=== PATIENT | male | born 1965 | race Caucasian/White ===

== ENCOUNTER 2020-12-28 16:55 | Emergency (ER) | payer OTHER, SELFPAY ==
--- NOTE | ~2020-12-28 | XR_ITS ---
EXAMINATION: XR hand RT min 3V INDICATION: Right hand pain TECHNIQUE: Three views of the right hand are obtained. COMPARISON: None available FINDINGS: No fracture is identified. Bone alignment is normal. There is moderate osteoarthritis at th e triscaphe and first carpometacarpal joints. The soft tissues are unremarkable. IMPRESSION: 1. Osteoarthritis without acute osseous abnormality. Reviewed, dictated and finalized at location A.
[2020-12-28 17:11] VITALS: BP 156/71; PULSE 72; RESP 20; TEMP 36.6; O2SAT 95
--- NOTE | 2020-12-28 17:13 | ED.UPPEXIN ---
HPI - Extremity Injury (Upper) General Chief Complaint: Extremity Problem,Nontraumatic Stated Complaint: right wrist and thumb area knot Time Seen by Provider: 12/28/20 17:13 Source: patient and RN notes reviewed History of Present Illness HPI narrative: Patient is a 55-year-old male who presents the urgent care with complaints of right thumb pain radiating to the right wrist. Patient states that he noticed the pain approximately 3 months or more and has been using Aleve while working. 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 Patient denies of any known history of arthritis. Patient states that he is left-hand dominant. Also reports of noticing a lump to the right thumb in the last few weeks. No other acute complaints. No known injury. No acute distress noted. Patient aware of the plan of care. Some parts of this dictation were generated by voice recognition software and may contain typographical and/or grammatical inaccuracies. Related Data Home Medications Medication Instructions Recorded Confirmed No Home Medications 12/28/20 12/28/20 Allergies Allergy/AdvReac Type Severity Reaction Status Date / Time No Known Allergies Allergy Unknown Verified 12/28/20 17:14 Review of Systems Review of Systems: Narrative: CONSTITUTIONAL: Denies fever, chills, or sweats. EYES: Denies visual changes, redness, or discharge. ENT: Denies rhinorrhea, congestion, sore throat, or otalgia. CARDIOVASCULAR: Denies chest pain, palpitations, or edema. RESPIRATORY: Denies cough or dyspnea. GASTROINTESTINAL: Denies abdominal pain, nausea, vomiting, or diarrhea. GENITOURINARY: Denies dysuria or hematuria. SKIN: Denies rash or itching. MUSCULOSKELETAL: Reports of right thumb pain with a lump shooting to the right wrist NEUROLOGIC: Denies headache, numbness, or weakness. All other systems reviewed are negative, except as documented in HPI. PMFSH Comments At the time of my signature, I reviewed and agree with the nursing past medical, surgical, social, and family history. There is no relevant family history pertinent to the patient complaint. Exam Narrative: Exam Narrative: GENERAL: This is a well-nourished, well-developed patient, in no apparent distress. HEAD: normocephalic, atraumatic. EYES: PERRL. Sclera clear/white. Vision is grossly intact. EARS: External ears normal NOSE: External nose normal with no obvious nasal discharge, nares without redness, no rhinorrhea. THROAT: Mucous membranes moist NECK: Neck supple SKIN: warm, intact with no suspicious lesions or rash, good texture and turgor. NEURO: awake, alert, and oriented to person, place and time. There were no obvious focal neurologic abnormalities. EXTREMITIES: No obvious edema, ecchymosis or deformity noted to the right upper extremity. Range of motion within normal limits. Positive strong right radial pulse with capillary refill less than 2 seconds. Range of motion to right thumb slightly limited due to pain. And non-mobile firm possible ganglion cyst or arthritis noted to the MCP of the right thumb Course Vital Signs Vital signs: Vital Signs Temperature 97.8 F 12/28/20 17:11 Pulse Rate 72 12/28/20 17:11 Respiratory Rate 20 12/28/20 17:11 Blood Pressure 156/71 H 12/28/20 17:11 Pulse Oximetry 95 12/28/20 17:11 Temperature 97.8 F 12/28/20 17:11 Pulse Rate 72 12/28/20 17:11 Respiratory Rate 20 12/28/20 17:11 Blood Pressure 156/71 H 12/28/20 17:11 Pulse Oximetry 95 12/28/20 17:11 Reviewed-patient is informed that they may have pre-hypertension or hypertension based on a blood pressure reading in the department. I recommend the patient call the primary care provider listed on their discharge instructions or a physician of their choice this week to arrange follow-up for further evaluation of possible pre-hypertension or hypertension. MDM - Extremity Injury (Upper) MDM Narrative Medical decision making narrat
== END 2020-12-28 18:25 | disposition home or self-care (01) ==
PROVIDERS: Emergency Provider Nurse Practitioner Family
DX: M19.041 Primary osteoarthritis, right hand (principal)
CPT/HCPCS: 73130; 99213; G0463

== ENCOUNTER 2021-07-25 18:09 | Emergency (ER) | payer OTHER, SELFPAY ==
[2021-07-25 18:16] VITALS: BP 143/68; PULSE 77; RESP 20; TEMP 37.1; O2SAT 98
--- NOTE | 2021-07-25 18:19 | ED.URI ---
HPI - URI/Sore Throat General Chief Complaint: Upper Respiratory Infection Stated Complaint: sore neck/throat Time Seen by Provider: 07/25/21 18:23 Source: patient Mode of arrival: ambulatory Limitations: no limitations History of Present Illness HPI Narrative: Cleve is a 56 year old male patient who ambulated into [facility] with neck and throat pain since . Patient states the left side of his neck starting hurting on , then nasal congestion, swollen glands, sinus drainage, and cough. Patient has not taken OTC medication for colds, he has taken Aleve for pain. Patient is a 40 year smoker. MD elicited complaint: sore throat Related Data Allergies Allergy/AdvReac Type Severity Reaction Status Date / Time No Known Allergies Allergy Unknown Verified 07/25/21 18:31 Review of Systems Review of Systems: CONSTITUTIONAL: Denies body aches, fever, chills, or sweats. EYES: Denies visual changes, redness, or discharge. ENT: + rhinorrhea, + congestion, + sore throat, left otalgia. CARDIOVASCULAR: Denies chest pain, palpitations, or edema. RESPIRATORY: + cough denies dyspnea. GASTROINTESTINAL: Denies abdominal pain, nausea, vomiting, or diarrhea. GENITOURINARY: Denies dysuria or hematuria. SKIN: Denies rash, itching, or wounds. MUSCULOSKELETAL: Denies back pain, joint pain, or myalgia. NEUROLOGIC: Denies headache, numbness, tingling, or weakness. PSYCH: Denies depression or anxiety. PMFSH Comments At time of signature, I have reviewed and agree with nursing past medical, surgical, social and family history unless otherwise noted. Please see nursing chart for further information. There is no relevant family history pertinent to the presenting complaint Exam Narrative: GENERAL: Well-appearing, well-nourished, and in no acute distress. HEAD: Normocephalic, atraumatic. EYES: EOMI. No redness or drainage. Conjunctivae normal. ENT: Mucous membranes pink and moist. nasal membranes pale with yellow drainage. Left tympanic membrane is bulging with moderate fluid no erythema. Right tympanic membrane with mild bulging no erythema minimal fluid . Posterior pharynx is erythemic with moderate edema no exudate and moderate amount of postnasal drainage noted. Uvula midline. NECK: Normal AROM. Supple. left anterior cervical lymphadenopathy. CHEST: No respiratory distress. Wheezing throughout lung johnson bilaterally MUSCULOSKELETAL: No bony tenderness. EXTREMITIES: Normal range of motion. No edema. SKIN: Warm, dry, no rash. Capillary refill normal. Normal skin turgor. NEURO: No focal deficits. Alert and oriented x3. Gait steady. PSYCH: Normal affect. No signs of depression or anxiety. Course Vital Signs Vital signs: Reviewed MDM - URI/Sore Throat MDM Narrative Medical decision making narrative: Rapid strep is negative. Strep culture will be sent to lab. Symptoms started 4 days ago. Patient will be treated with prednisone. Follow-up with his primary care doctor in 3 to 5 days for continued symptoms Patient is scheduled to take Amoxicillin for a dental procedure starting 07/29/21. Differential Diagnosis Differential diagnosis: Likely upper respiratory infection, viral infection and pharyngitis Medical Records Attestation: I reviewed the patient's medical records. Lab Data Attestation: I reviewed the patient's lab results. Critical Care Time Critical Care Time Critical Care Time: No Discharge Plan Discharge Clinical Impression: Upper respiratory infection Qualifiers: URI type: unspecified viral URI Qualified Code(s): J06.9 - Acute upper respiratory infection, unspecified Patient Disposition: Home, Self-Care Condition: Stable Instructions: Antibiotic Form, Upper Respiratory Infection (DC) Additional Instructions: Increase fluids, OTC Chloraseptic lozenges for sore throat pain. Your rapid strep swab was negative today at [facility]. You will be notified in a few days if the culture comes back pos
== END 2021-07-25 18:50 | disposition home or self-care (01) ==
PROVIDERS: Emergency Provider Nurse Practitioner Family
DX: J06.9 Acute upper respiratory infection, unspecified (principal); F17.200 Nicotine dependence, unspecified, uncomplicated; Z96.60 Presence of unspecified orthopedic joint implant
CPT/HCPCS: 87081; 87147; 87880; 99213; G0463

== ENCOUNTER 2021-08-10 13:47 | Emergency (ER) | payer OTHER, SELFPAY ==
--- NOTE | ~2021-08-10 | XR_ITS ---
EXAMINATION: XR chest 2V EXAM DATE: 08/10/2021 14:30 INDICATION: Chest pressure. TECHNIQUE: Frontal and lateral projections of the chest obtained and reviewed. There is no prior katlyn dy for comparison. FINDINGS: Punctate left lower lobe granuloma. The lungs are otherwise clear. There are no pleural e ffusions. The cardiomediastinal silhouette is within normal limits. There is no pneumothorax [place]. The bones and soft tissues are unremarkable. IMPRESSION: No acute cardiopulmonary findings. Reviewed, dictated and finalized at location B. 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
[2021-08-10 14:00] VITALS: BP 142/83; PULSE 68; RESP 18; TEMP 37.3; O2SAT 96
--- NOTE | 2021-08-10 14:10 | ECG_ITS ---
Measurements Intervals [place] Rate: 60 P: 50 ID: [id number] QRS: 35 QRSD: 112 T: 82 QT: 431 QTc: 434 Interpretive Statements SINUS RHYTHM BASELINE ARTIFACT- I, II, III, AVR, AVL, AVF NORMAL ECG Electronically Signed On 08-10-2021 14:51:32 COMPUTER PROGRAMMER by Villa Smith D.O.
--- NOTE | 2021-08-10 14:21 | ED.URI ---
HPI - URI/Sore Throat General Chief Complaint: Upper Respiratory Infection Stated Complaint: Chest Pain Time Seen by Provider: 08/10/21 14:05 Source: patient, RN notes reviewed and old records reviewed Mode of arrival: ambulatory Limitations: no limitations History of Present Illness HPI Narrative: 56 YEAR OLD MALE WHO PRESENTS TO [facility] WITH COMPLAINTS OF LEFT SIDED CHEST PRESSURE FOR THE PAST 2 DAYS ASSOCIATED WITH SHORTNESS OF BREATH WHICH HAS INCREASED TODAY. Patient was seen in clinic on July 25 with negative strep per rapid but culture returned positive. he was placed on antibiotics on the 28 of July but states he took all doses but 4 tabs but didn't change his tooth brush. Patient states that he felt better after a few day of antibiotics but then his sinuses flared back up. Patient has long history of tobacco abuse of up to 3 pack daily for 30 years states now down to 1 pack daily. He reports that he has this pressure to his left chest which is dull and aching and then it goes into his stomach. Patient states dyspnea increases with activity. MD elicited complaint: nasal congestion, sinus pain and other (left sided chest pain and pressure with dyspnea) Pertinent past history: other (RECENT STREP, heavy tobacco abuse) Onset (ago): day(s) (2) Related Data Allergies Allergy/AdvReac Type Severity Reaction Status Date / Time No Known Allergies Allergy Unknown Verified 07/25/21 18:31 Review of Systems Review of Systems: CONSTITUTIONAL: Denies fever, chills, or sweats. EYES: Denies visual changes, redness, or discharge. ENT: Positive for rhinorrhea, congestion,sinus pain, no sore throat, or otalgia. CARDIOVASCULAR:REPORTS CHEST TIGHTNESS AND PRESSURE, NO palpitations, or edema. RESPIRATORY: Denies cough positive for dyspnea. GASTROINTESTINAL: Denies abdominal pain, nausea, vomiting, or diarrhea. GENITOURINARY: Denies dysuria or hematuria. SKIN: Denies rash or itching. MUSCULOSKELETAL: Denies back pain, joint pain, or myalgia. NEUROLOGIC: Denies headache, numbness, or weakness. PSYCHIATRIC: Denies anxiety or depression. All systems reviewed & are unremarkable except as noted in HPI and below PMFSH Past Medical History Medical History (Updated 08/14/21 @ 16:23 by Rena Joseph NP) Arthritis Pneumonia Tobacco abuse Surgical History Surgical History (Updated 11/16/21 @ 14:28 by Rena Joseph NP) Hx of appendectomy Total knee replacement status BILATERAL Social History Social History (Updated 08/14/21 @ 16:02 by Rena Joseph NP) Smoking packs per day: 3 Smoking cigarettes per day: 60.0 Years smoked: 30 Smoking pack-years: 90.00 Smoking status: Current every day smoker Tobacco type: cigarettes Alcohol intake: current Substance use: never Living arrangements: with family Gender identity (if verbalized by the patient): Male Comments At time of signature, agree with nursing past medical, surgical, social and family history. There is no relevant family history pertinent to the presenting complaint Exam Narrative: GENERAL: Well-appearing, well-nourished, and in no acute distress.anxious HEAD: Normocephalic, atraumatic. EYES: PERRLA and EOMI. ENT: Nares patent, clear rhinorrhea no epistaxis.reports sinus pressure, Mucous membranes moist.TM's normal with good light reflex, throat pink with good light reflex NECK: Supple. no lymphadenopathy CHEST: Clear to auscultation. No respiratory distress.SAO2 96% on room air, no tachypnea noted, reports left chest pressure with dyspnea HEART: Regular rate and rhythm. No murmur heard. Normal peripheral pulses. ABDOMEN: Soft, nontender, nondistended, normal active bowel sounds. EXTREMITIES: Normal range of motion. No edema. SKIN: Warm, dry, no rash. NEURO: No focal deficits. Alert and oriented x3. Course Vital Signs Vital signs: Vital Signs Temperature 37.3 C 08/10/21 14:00 Pulse Rate 68 08/10/21 14:00 Respiratory Rate 18 1
== END 2021-08-10 15:14 | disposition short-term general hospital (02) ==
PROVIDERS: Emergency Provider Registered Nurse
DX: R07.9 Chest pain, unspecified (principal); Z96.653 Presence of artificial knee joint, bilateral
CPT/HCPCS: 71046; 87081; 87880; 93005; 99213; G0463

== ENCOUNTER 2021-09-20 14:33 | Emergency (ER) | payer OTHER, SELFPAY ==
[2021-09-20 15:00] VITALS: BP 135/75; PULSE 69; RESP 20; TEMP 36.9; O2SAT 96
--- NOTE | 2021-09-20 16:21 | ED.URI ---
HPI - URI/Sore Throat General Chief Complaint: Upper Respiratory Infection Stated Complaint: sinus infection Source: patient and RN notes reviewed History of Present Illness HPI Narrative: This is a 56-year-old male that presented to urgent care with complaints of nasal congestion with greenish mucus that he has had for approximately 1 week. According to patient he used a [place] pot which made his situation worse. Patient notes that he was recently positive for strep and treated with antibiotics. The patient denies SOB, CP, palpitation, extremity numbness, lightheadedness, dizziness, constipation, diarrhea, chills, or fever. Related Data Allergies Allergy/AdvReac Type Severity Reaction Status Date / Time No Known Allergies Allergy Unknown Verified 07/25/21 18:31 Review of Systems Review of Systems: A 14 organ system Review of Systems was performed and pertinent positives included in the HPI, otherwise remaining ROS is negative. [facility] Past Medical History Medical History Arthritis Pneumonia Tobacco abuse Surgical History Surgical History Hx of appendectomy Total knee replacement status BILATERAL Social History Social History Smoking packs per day: 3 Smoking cigarettes per day: 60.0 Years smoked: 30 Smoking pack-years: 90.00 Smoking status: Current every day smoker Tobacco type: cigarettes Alcohol intake: current Substance use: never Gender identity (if verbalized by the patient): Male Exam Narrative: GENERAL: This is a well-nourished, well-developed patient, in no apparent distress. HEAD: normocephalic, atraumatic. EYES: PERRL. Sclera clear/white. Vision is grossly intact. EARS: External ears normal, auditory canals clear and without drainage, TMs normal without perforation. Hearing grossly intact. NOSE: External nose normal with no obvious nasal discharge, nares without redness, no rhinorrhea. THROAT: Mucous membranes moist, posterior pharynx edema with erythema. NECK: Neck supple, non-tender without lymphadenopathy, masses or thyromegaly. CARDIOVASCULAR: Regular rate and rhythm without murmurs, gallops, or rubs. RESPIRATORY: Expiratory wheezing GASTROINTESTINAL: Abdomen soft, non-tender, nondistended. Bowel sounds are active. No hepato-splenomegaly, or palpable masses. No guarding. SKIN: warm, intact with no suspicious lesions or rash, good texture and turgor. NEURO: awake, alert, and oriented to person, place and time. There were no obvious focal neurologic abnormalities. Steady gait EXTREMITIES: Normal range of motion. No edema. No calf tenderness. Negative Homans sign bilaterally. BACK: Nontender without deformity or crepitance. No flank tenderness. Course Vital Signs Vital signs: Vital Signs Temperature 98.4 F 09/20/21 15:00 Pulse Rate 69 09/20/21 15:00 Respiratory Rate 20 09/20/21 15:00 Blood Pressure 135/75 09/20/21 15:00 Pulse Oximetry 96 09/20/21 15:00 Temperature 98.4 F 09/20/21 15:00 Pulse Rate 69 09/20/21 15:00 Respiratory Rate 20 09/20/21 15:00 Blood Pressure 135/75 09/20/21 15:00 Pulse Oximetry 96 09/20/21 15:00 MDM - URI/Sore Throat Differential Diagnosis Differential diagnosis: Likely upper respiratory infection, otitis media, sinusitis, viral infection, bronchitis and pharyngitis Discharge Plan Discharge Clinical Impression: Sinusitis Qualifiers: Sinusitis location: frontal Chronicity: acute Recurrence: non-recurrent Qualified Code(s): J01.10 - Acute frontal sinusitis, unspecified Patient Disposition: Home, Self-Care Condition: Stable Instructions: Antibiotic Form, Sinusitis (ED) Additional Instructions: What are the symptoms of sinusitis? - Common symptoms of sinusitis include: ?Stuffy or blocked nose ?Thick yellow or green discharge from th
== END 2021-09-20 16:30 | disposition home or self-care (01) ==
PROVIDERS: Emergency Provider Nurse Practitioner
DX: J01.10 Acute frontal sinusitis, unspecified (principal); F17.210 Nicotine dependence, cigarettes, uncomplicated; M19.90 Unspecified osteoarthritis, unspecified site
CPT/HCPCS: 87081; 87880; 99213; G0463

== ENCOUNTER 2022-08-22 11:47 | Emergency (ER) | payer OTHER, SELFPAY ==
--- NOTE | ~2022-08-22 | XR_ITS ---
EXAMINATION: XR chest 2V DATE: 08/22/2022 12:52 INDICATION: Wheezing. Congestion. TECHNIQUE: Frontal and lateral views of the chest were obtained. COMPARISON: Chest 2 views 08/10/2021 FINDINGS: A calcified left lung nodule and calcified mediastinal lymph nodes are consistent with old granulomatous disease. No pleural effusion or pneumothorax. The heart size is normal. IMPRESSION: 1. No acute cardiopulmonary disease. Reviewed, dictated and finalized at location A. 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
[2022-08-22 11:56] VITALS: BP 143/66; PULSE 90; RESP 20; TEMP 36.4; O2SAT 95
--- NOTE | 2022-08-22 12:37 | ED.URI ---
HPI - URI/Sore Throat General Chief Complaint: Upper Respiratory Infection Stated Complaint: chest and head congestion Time Seen by Provider: 08/22/22 12:37 Source: patient, RN notes reviewed and old records reviewed Mode of arrival: ambulatory Limitations: no limitations History of Present Illness HPI Narrative: 57-year-old male presents to [facility] with complaints chest congestion congestion, chills, body aches, intermittent shortness of breath since Monday night. Denies fever, chest pain or abdominal pain. Treatments prior to arrival: none Related Data Home Medications Medication Instructions Recorded Confirmed metoprolol tartrate 25 mg tablet 25 mg PO DAILY 08/22/22 08/22/22 Allergies Allergy/AdvReac Type Severity Reaction Status Date / Time No Known Allergies Allergy Unknown Verified 08/22/22 12:09 Review of Systems Review of Systems: All systems reviewed & are unremarkable except as noted in HPI and below Constitutional: Constitutional: Reports as per HPI, Reports body ache(s), Reports chills, Denies fever(s) and Denies headache(s) Eyes: Eyes: Reports no additional eye complaints ENT: Reports system reviewed and no additional complaints, except as documented and Denies headache(s) Cardiovascular: Cardiovascular: Reports no additional cardiovascular complaints, Denies chest pain and Denies dyspnea Respiratory: Respiratory: Reports no additional respiratory complaints and Denies dyspnea Gastrointestinal: Gastrointestinal: Reports no additional gastrointestinal complaints and Denies abdominal pain Musculoskeletal: Musculoskeletal: Reports no additional musculoskeletal complaints Integumentary/Breasts: Skin/Breast: Reports system reviewed and no additional complaints, except as docu Neurologic: Reports system reviewed and no additional complaints, except as documented and Denies headache(s) Psychiatric: Psychiatric: Reports no additional psychiatric complaints Allergic/Immunologic: Allergic/Immunologic: Reports no additional allergic/immunologic complaints [facility] Past Medical History Medical History Arthritis Pneumonia Tobacco abuse Surgical History Surgical History Hx of appendectomy Total knee replacement status BILATERAL Social History Social History Smoking packs per day: 3 Smoking cigarettes per day: 60.0 Years smoked: 30 Smoking pack-years: 90.00 Smoking status: Current every day smoker Tobacco type: cigarettes Alcohol intake: current Substance use: never Gender identity (if verbalized by the patient): Male Comments At the time of my signature, I reviewed and agree with the nursing past medical, surgical, social, and family history. There is no relevant family history pertinent to the patient complaint. Exam Const: General: cooperative, no acute distress, well developed, alert, ill appearing (Acute on chronic. Mildly acute) acutely and chronically and well nourished Nutritional Appearance: well nourished and obese Orientation/consciousness: patient oriented x3 Limitations: no limitations HENMT: Head: normal to inspection Ears: external ears normal Face/Nose/Sinus: Normal external nose present, Normal nares present, Normal nasal mucous membranes and turbinates present and normal facial exam Face and sinus: normal facial exam Mouth: Yes Normal oral and palatal mucosa present, Yes lip normal and Yes moist mucous membranes abnormal Throat: posterior oropharynx normal and uvula midline Eyes: General: appearance normal, both eyes and all related structures Alignment and Position: alignment normal Pupils: Equal, round and reactive pupils present Neck: Neck: normal visual inspection, full ROM, no lymphadenopathy and no meningeal signs Chest: Chest palpation & inspection: normal inspection of
== END 2022-08-22 13:23 | disposition home or self-care (01) ==
PROVIDERS: Emergency Provider Nurse Practitioner
DX: J40 Bronchitis, not specified as acute or chronic (principal); F17.210 Nicotine dependence, cigarettes, uncomplicated
CPT/HCPCS: 71046; 99213; G0463

== ENCOUNTER 2025-03-19 16:01 | Outpatient (CLI) | payer OTHER, SELFPAY ==
--- NOTE | ~2025-03-19 | XR_ITS ---
CHEST RADIOGRAPH, PA AND LATERAL CLINICAL HISTORY: R06.2 - Wheezing . COMPARISON: 08/22/2022 TECHNIQUE: PA and lateral views of the chest. FINDINGS Calcified lymph nodes within the mediastinum suggesting prior granulomatous disease. The remainder of the cardiomediastinal silhouette is otherwise unremarkable. Calcified nodule within the left mid to lower lung field, unchanged from 2021, suggesting prior granu lomatous disease. Remainder of the lungs are clear. No peribronchial thickening is present. IMPRESSION: Findings suggesting prior granulomatous disease without focal infiltrate or effusion. Reviewed, dictated and finalized at location A. IMPRESSION: Findings suggesting prior granulomatous disease without focal infiltrate or eff usion.
--- NOTE | ~2025-03-19 | XR_ITS ---
HISTORY: M25.532 - Pain in left wrist, injury several months ago COMPARISON: None TECHNIQUE: 3 views of the left wrist were performed. FINDINGS: No acute fracture is identified. 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 Collapse of the upper pole of the left scaphoid is also noted, with sclerosis. Remainder of the carpal arcs are intact. Mild radiocarpal joint space narrowing with sclerosis of the distal radius is present. The remaining visualized joint spaces are otherwise preserved. Degenerative disease within the first carpometacarpal joint space No significant soft tissue swelling is noted. No radiopaque foreign body is identified. IMPRESSION: No subacute or acute fracture detected within the left wrist. Significant degenerative disease, as detailed above. Reviewed, dictated and finalized at location A.
[2025-03-19 19:11] LABS: Alanine Aminotransferase 37 U/L (6-50); Albumin Level 4.6 g/dL (3.5-5.1); Alkaline Phosphatase 75 U/L (38-126); Anion Gap 9 mmol/L (4-12); Aspartate Amino Transferase 43 U/L (17-59); Bilirubin,Total 0.7 mg/dL (0.2-1.3); Blood Urea Nitrogen 12 mg/dL (9-20); Calcium 9.7 mg/dL (8.4-10.2); Carbon Dioxide 31 mmol/L (22-30); Chloride 100 mmol/L (98-107); Estimated Glomerular Filt Rate > 60; Glucose 102 mg/dL (65-110); Potassium 4.4 mmol/L (3.4-5.0); Sodium 140 mmol/L (137-145)
[2025-03-19 19:18] LABS: Cholesterol 221 mg/dL (0-200); HDL Direct 37 mg/dL; Triglycerides 243 mg/dL (<150)
[2025-03-19 19:30] LABS: LDL Cholesterol Direct 131 mg/dL
[2025-03-19 19:45] LABS: Vitamin D 25 Hydroxy 25.9 ng/mL
[2025-03-19 19:51] LABS: Prostate Specific Antigen 0.6 ng/mL (< OR = 4.0)
== END 2025-03-19 16:02 | disposition home or self-care (01) ==
PROVIDERS: PCP Nurse Practitioner Adult Health; Visit Provider Nurse Practitioner Adult Health
DX: Z00.00 Encounter for general adult medical examination without abnormal findings (principal); E53.8 Deficiency of other specified B group vitamins; M25.532 Pain in left wrist; R06.2 Wheezing; E55.9 Vitamin D deficiency, unspecified; Z12.5 Encounter for screening for malignant neoplasm of prostate; R91.8 Other nonspecific abnormal finding of lung field
CPT/HCPCS: 36415; 71046; 73110; 80053; 80061; 82306; 82607; 83735; 84153; 84439; 84443; G0103

== ENCOUNTER 2025-07-21 15:34 | Outpatient (CLI) | payer OTHER, SELFPAY ==
--- NOTE | ~2025-07-21 | MR_ITS ---
EXAMINATION: MR wrist LT wo/w con DATE: 07/21/2025 16:31 INDICATION: Occult ganglion cyst. TFCC sprain. Ulnar-sided left wrist pain. TECHNIQUE: Magnetic resonance imaging (MRI) of the left wrist was performed without and with 20 mL Multihance intravenous contrast. Sequences performed include axial, sagittal and coronal T1-weighted FSE and T2-weighted FS FSE, sagittal PD-weighted FSE, axial T1-weighted FS FSE and postcontrast axial, sagittal and coronal T1-weighted FS FSE. COMPARISON: None FINDINGS: Intrinsic ligaments: The scapholunate and lunotriquetral ligaments are normal. Triangular fibrocartilage complex (TFCC): The triangular fibrocartilage including its foveal and styloid attachments as well as the dorsal and volar radioulnar ligaments are normal. The ulnar collateral ligament, ulnotriquetral ligament and meniscal homologue are normal. There is a tear of the ulnar side of the extensor carpi ulnaris (ECU) sub sheath resulting in ulnar subluxation of the extensor carpi ulnaris tendon across the ulnar rim of the ECU groove and the tip of the ulnar styloid process. Extensor wrist: Extensor tendons of the wrist are normal. No tenosynovitis. Flexor wrist: The flexor tendons of the wrist are normal. No abnormality in the carpal tunnel with normal median nerve. Guyon's canal: Guyon's canal including the ulnar nerve and artery are normal. Bones/other: No fractures or pathologic marrow replacing process. Polyarticular osteoarthritis with subarticular edema-like signal change, severe at the triscaphe joint and moderate at the first carpometacarpal joint. Mild osteoarthritis at the distal radioulnar and midcarpal joints. There is mild subarticular edema-like signal change and enhancement at the volar/ulnar aspect of the proximal articular surface of the lunate. There is synovitis at the volar aspect of the junction of the articulation between the capitate, trapezoid, trapezium and distal scaphoid with enhancing erosions extending into the bones at either side of the articulation between the trapezoid and capitate.. There is a nonenhancing T2 hyperintense intraosseous ganglion cyst extending into the dorsal/ulnar aspect of the triquetrum. IMPRESSION: 1. There is a tear of the ulnar side of the extensor carpi ulnaris sub sheath with ulnar subluxation of the otherwise normal extensor carpi ulnaris tendon across the ulnar rim of the ECU groove and the tip of the ulnar styloid process. 2. 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 3. Synovitis with erosions at the articulation between the trapezoid and capitate. Reviewed, dictated and finalized at location A. IMPRESSION: 1. There is a tear of the ulnar side of the extensor carpi ulnaris sub sheath w ith ulnar subluxation of the otherwise normal extensor carpi ulnaris tendon acr oss the ulnar rim of the ECU groove and the tip of the ulnar styloid process. 2. 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 3. Synovitis with erosions at the articulation between the trapezoid and capita te.
== END 2025-07-21 15:35 | disposition home or self-care (01) ==
PROVIDERS: PCP Nurse Practitioner Adult Health; Visit Provider Plastic Surgery
DX: S63.592A Other specified sprain of left wrist, initial encounter (principal); X58.XXXA Exposure to other specified factors, initial encounter; M19.032 Primary osteoarthritis, left wrist
CPT/HCPCS: 73223; A9577